=== PATIENT | female | born 1995 | race Caucasian/White ===

== ENCOUNTER 2017-05-17 16:43 | Emergency (ER) | payer OTHER ==
[~2017-05-17] VITALS: Ht 165.1 cm; Wt 80.9 kg
[~2017-05-17 16:43] MED LIST: AMOXICILLIN/CLA1 TA2 PO; AMOXICILLIN/PO500 MG PO; AMOXICILLIN500 MG PO; BUPROPN HCL150 MG PO; CIPROFLOXACIN H0.3 % OU; DEPO-PROVER150 MG/M1 IM; DIFLUCAN150 MG PO; FLOXIN OTIC0.3 % OT; NEXIUM20 MG PO; NORCO1 TA1 PO; OXCARBAZEPINE150 MG PO; ULTRAM50 M1 PO; ZOFRAN ODT8 MG PO
[2017-05-17] MEDS ORDERED: LAMICTAL100 M1 PO (17:02)
[2017-05-17] MEDS ORDERED: HYDROXYZ HCL25 MG PO (17:03)
[2017-05-17] MEDS ORDERED: CLONAZEPAM0.5 MG PO (17:03)
[2017-05-17] MEDS ORDERED: FLEXERIL PO (17:33)
[2017-05-17] MEDS ORDERED: MOTRIN800 MG PO (17:33)
[2017-05-17 17:40] VITALS: BP 131/78
== END 2017-05-17 17:40 | disposition home or self-care (01) | DRG 103 ==
LOC: ED 16:43
DX: G44.209 Tension-type headache, unspecified, not intractable (principal); R11.0 Nausea

== ENCOUNTER 2017-07-26 16:38 | Emergency (ER) | payer OTHER ==
[~2017-07-26] VITALS: Ht 165.1 cm; Wt 84.0 kg
[~2017-07-26 16:38] MED LIST changes: +CLONAZEPAM0.5 MG PO; +FLEXERIL PO; +HYDROXYZ HCL25 MG PO; +LAMICTAL100 M1 PO; +MOTRIN800 MG PO
[2017-07-26] MEDS ORDERED: PENICILLN VK500 MG PO (17:01)
[2017-07-26 17:14] VITALS: BP 139/76
== END 2017-07-26 17:10 | disposition home or self-care (01) | DRG 153 ==
LOC: ED 16:38
DX: J02.9 Acute pharyngitis, unspecified (principal)

== ENCOUNTER 2017-08-15 20:37 | Emergency (ER) | payer OTHER ==
[~2017-08-15] VITALS: Ht 162.6 cm; Wt 78.6 kg
[~2017-08-15 20:37] MED LIST changes: +PENICILLN VK500 MG PO
[2017-08-15] MEDS ORDERED: PERCOCET 5/325M1 TAB PO (21:49)
[2017-08-15] MEDS ORDERED: AMOXICILLIN500 MG PO (21:49)
[2017-08-15 21:50] VITALS: BP 110/75
== END 2017-08-15 21:56 | disposition home or self-care (01) | DRG 159 ==
LOC: ED 20:37
DX: K08.89 Other specified disorders of teeth and supporting structures (principal); F31.9 Bipolar disorder, unspecified; F43.10 Post-traumatic stress disorder, unspecified; F41.9 Anxiety disorder, unspecified; F17.210 Nicotine dependence, cigarettes, uncomplicated

== ENCOUNTER 2017-10-04 17:01 | Emergency (ER) | payer OTHER ==
[~2017-10-04] VITALS: Ht 162.6 cm; Wt 81.8 kg
[~2017-10-04 17:01] MED LIST changes: +PERCOCET 5/325M1 TAB PO
[2017-10-04] MEDS ORDERED: SEROQUEL100 MG PO (17:26)
[2017-10-04 19:39] LABS: HEMATOCRIT 41.7 % (37.0-47.0); IMMATURE GRANULOCYTES 0.3 % (0.0-1.0); MEAN CELL VOLUME 87.2 fL CALC (80.0-100.0); MEAN CORPUSCULAR HGB 29.3 pG CALC (26.0-32.0); MEAN CORPUSCULAR HGB CONC 33.6 g/L CALC (32.0-36.0); NEUT# 7.99 thou/uL (2.00-7.15); RED BLOOD COUNT 4.78 mill/uL (4.20-5.60); RED CELL DISTRI WIDTH 12.7 % (11.5-15.5)
[2017-10-04 19:57] LABS: URINE BILIRUBIN - DIPSTICK NEGATIVE (NEGATIVE); URINE BLOOD DIPSTICK LARGE (NEGATIVE); URINE COLOR YELLOW; URINE GLUCOSE - DIPSTICK NEGATIVE (NEGATIVE); URINE KETONE NEGATIVE (NEGATIVE); URINE LEUK ESTERASE NEGATIVE (NEGATIVE); URINE NITRITE - DIPSTICK NEGATIVE (Negative); URINE PH 6.5 (4.5-8.0); URINE PROTEIN - DIPSTICK 30 mg/dL (NEG-TRACE); URINE SPECIFIC GRAVITY 1.025
[2017-10-04 20:03] LABS: ALBUMIN 4.8 g/dL (3.2-5.0); ALKALINE PHOSPHATASE 62 u/l (38-126); ANION GAP 16 (6-22 (CALC)); BILIRUBIN, TOTAL 0.4 mg/dL (0.0-1.4); BUN 11 mg/dL (7-17); BUN/CREATININE RATIO 16 (12-20 (CALC)); CALCIUM 10.2 mg/dL (8.4-10.2); CARBON DIOXIDE 28 mmol/l (22-30); CHLORIDE 103 mmol/l (95-108); CREATININE 0.7 mg/dL (0.5-1.0); GFR > 60 ML/MIN (>=60 (CALC)); GFR FOR AFR.AMER. > 60 ML/MIN (>=60 (CALC)); GLUCOSE 109 mg/dL (65-105); POTASSIUM 4.5 mmol/l (3.5-5.1); SGOT/AST 21 u/l (14-36); SGPT/ALT 31 u/l (9-52); SODIUM 143 mmol/l (137-146); TOTAL PROTEIN 7.9 g/dL (6.3-8.2)
[2017-10-04 20:04] LABS: URINE CLARITY CLOUDY
[2017-10-04 20:12] LABS: URINE RBC >100 RBC/hpf (0-5); URINE SQUAMOUS EPITHELIAL CELL MANY EPI/hpf (0-FEW)
[2017-10-05] MEDS ORDERED: CIPROFLOXACN500 MG PO (01:55)
[2017-10-05] MEDS ORDERED: ULTRAM50 M1 PO (01:55)
[2017-10-05 02:44] VITALS: BP 111/69
== END 2017-10-05 03:10 | DRG 690 ==
LOC: ED 17:01
PROVIDERS: Emergency Medicine
DX: N13.6 Pyonephrosis (principal); F17.210 Nicotine dependence, cigarettes, uncomplicated; K59.00 Constipation, unspecified; F31.9 Bipolar disorder, unspecified; F43.10 Post-traumatic stress disorder, unspecified; F41.9 Anxiety disorder, unspecified

== ENCOUNTER 2018-06-17 13:25 | Emergency (ER) | payer OTHER ==
[~2018-06-17] VITALS: Ht 162.6 cm; Wt 90.0 kg
[~2018-06-17 13:25] MED LIST changes: +CIPROFLOXACN500 MG PO; +SEROQUEL100 MG PO
[2018-06-17] MEDS ORDERED: LAMOTRIGINE25 M1 PO (15:42)
[2018-06-17] MEDS ORDERED: BUPROPION100 MG PO (15:43)
[2018-06-17] MEDS ORDERED: TRAZODONE50 MG PO (15:43)
[2018-06-17] MEDS ORDERED: TRILEPTAL150 M1 PO (15:44)
[2018-06-17 16:21] VITALS: BP 123/79
[2018-06-17 17:17] LABS: URINE BILIRUBIN - DIPSTICK NEGATIVE (NEGATIVE); URINE BLOOD DIPSTICK NEGATIVE (NEGATIVE); URINE COLOR YELLOW; URINE GLUCOSE - DIPSTICK NEGATIVE (NEGATIVE); URINE KETONE NEGATIVE (NEGATIVE); URINE LEUK ESTERASE NEGATIVE (NEGATIVE); URINE NITRITE - DIPSTICK NEGATIVE (Negative); URINE PROTEIN - DIPSTICK NEGATIVE (NEG-TRACE); URINE SPECIFIC GRAVITY 1.025; URINE UROBILINOGEN - DIPSTICK 0.2 E.U./dL (0.2)
[2018-06-17 17:19] LABS: URINE CLARITY CLEAR
== END 2018-06-17 16:21 | disposition home or self-care (01) ==
LOC: ED 13:25
PROVIDERS: Family Medicine
DX: Z30.012 Encounter for prescription of emergency contraception (principal); R10.31 Right lower quadrant pain; R10.32 Left lower quadrant pain; F17.210 Nicotine dependence, cigarettes, uncomplicated

== ENCOUNTER 2018-07-30 22:33 | Emergency (ER) | payer SELFPAY ==
[~2018-07-30] VITALS: Ht 162.6 cm; Wt 79.0 kg
[~2018-07-30 22:33] MED LIST changes: +BUPROPION100 MG PO; +LAMOTRIGINE25 M1 PO; +TRAZODONE50 MG PO; +TRILEPTAL150 M1 PO
[2018-07-31 00:15] VITALS: BP 110/78
== END 2018-07-31 00:15 | disposition home or self-care (01) | DRG 951 ==
LOC: ED 22:33
DX: Z20.2 Contact with and (suspected) exposure to infections with a predominantly sexual mode of transmission (principal)

== ENCOUNTER 2018-09-03 22:02 | Emergency (ER) | payer SELFPAY ==
[~2018-09-03] VITALS: Ht 162.6 cm; Wt 82.6 kg
[2018-09-03] MEDS ORDERED: AMOXICILLIN500 MG PO (22:27)
[2018-09-03 22:30] VITALS: BP 128/87
== END 2018-09-03 22:30 | disposition home or self-care (01) | DRG 153 ==
LOC: ED 22:02
DX: J03.90 Acute tonsillitis, unspecified (principal)

== ENCOUNTER 2019-02-09 00:33 | Emergency (ER) | payer SELFPAY ==
[~2019-02-09] VITALS: Ht 162.6 cm; Wt 65.9 kg
[2019-02-09 00:38] VITALS: BP 141/87
== END 2019-02-09 01:08 | disposition left against medical advice (07) | DRG 603 ==
LOC: ED 00:33
DX: L02.412 Cutaneous abscess of left axilla (principal); F17.210 Nicotine dependence, cigarettes, uncomplicated; Z91.19 Patient's noncompliance with other medical treatment and regimen

== ENCOUNTER 2020-04-24 12:35 | Emergency (ER) | payer SELFPAY ==
[~2020-04-24] VITALS: Ht 162.6 cm; Wt 75.0 kg
[2020-04-24] MEDS ORDERED: SEROQUEL100 MG PO (13:39)
[2020-04-24 13:49] LABS: URINE BLOOD DIPSTICK NEGATIVE (NEGATIVE); URINE COLOR YELLOW; URINE GLUCOSE - DIPSTICK NEGATIVE (NEGATIVE); URINE KETONE NEGATIVE (NEGATIVE); URINE LEUK ESTERASE NEGATIVE (NEGATIVE); URINE NITRITE - DIPSTICK NEGATIVE (Negative); URINE PH 6.5 (4.5-8.0); URINE PROTEIN - DIPSTICK 30 mg/dL (NEG-TRACE); URINE SPECIFIC GRAVITY >=1.030
[2020-04-24 13:51] LABS: URINE BILIRUBIN - DIPSTICK NEGATIVE (NEGATIVE)
[2020-04-24] MEDS ORDERED: QUETIAPINE FUM200 MG PO (13:52)
[2020-04-24] MEDS ORDERED: KEFLEX500 M1 PO ×2 (13:56)
[2020-04-24] MEDS ORDERED: VALTREX1 GM PO (13:56)
[2020-04-24 13:57] LABS: URINE SQUAMOUS EPITHELIAL CELL MANY EPI/hpf (0-FEW)
[2020-04-24 14:11] VITALS: BP 109/70
== END 2020-04-24 14:10 | disposition home or self-care (01) | DRG 759 ==
LOC: ED 12:35
DX: A60.04 Herpesviral vulvovaginitis (principal); F17.210 Nicotine dependence, cigarettes, uncomplicated

== ENCOUNTER 2020-06-12 09:36 | Emergency (ER) | payer SELFPAY ==
[~2020-06-12] VITALS: Ht 162.6 cm; Wt 75.0 kg
[~2020-06-12 09:36] MED LIST changes: +KEFLEX500 M1 PO; +QUETIAPINE FUM200 MG PO; +VALTREX1 GM PO
[2020-06-12] MEDS ORDERED: ZOVIRAX400 MG PO (09:50)
[2020-06-12 10:01] VITALS: BP 129/85
== END 2020-06-12 10:05 | disposition home or self-care (01) | DRG 951 ==
LOC: ED 09:36
DX: Z30.012 Encounter for prescription of emergency contraception (principal); B00.9 Herpesviral infection, unspecified; F17.200 Nicotine dependence, unspecified, uncomplicated

== ENCOUNTER 2022-09-06 06:32 | Emergency (ER) | payer OTHER ==
[~2022-09-06] VITALS: Ht 162.6 cm; Wt 65.9 kg
[~2022-09-06 06:32] MED LIST changes: +ZOVIRAX400 MG PO
[2022-09-06 07:08] VITALS: BP 135/95
[2022-09-06 07:15] VITALS: BP 130/89
[2022-09-06] MEDS ORDERED: CEPHALEXIN500 M1 PO (08:20)
[2022-09-06] MEDS ORDERED: PERMETHRIN5 % EX (08:20)
[2022-09-06 08:24] VITALS: BP 130/89
== END 2022-09-06 08:28 | disposition home or self-care (01) ==
LOC: ED 06:32
DX: B86 Scabies (principal); F31.9 Bipolar disorder, unspecified; F17.200 Nicotine dependence, unspecified, uncomplicated; Z20.822 Contact with and (suspected) exposure to COVID-19